=== PATIENT | male | born 1975 | race Caucasian/White ===

== ENCOUNTER 2016-12-11 22:46 | Emergency (ER) | payer OTHER ==
[~2016-12-11 22:46] MED LIST: AMLO10TA2 PO; ASPI81CH37 CHEW; B-CO1CAP9 PO; CHOL50006 PO; HYDR-3801 PO; INSU100V2 SQ; INSU1INJ5 SQ; LEVO25TA4 PO; SIMV10TA PO; SITA50 PO; SODI650T PO; SPIR50TA PO
[2016-12-11 22:47] VITALS: BP 134/60; PULSE 82; RESP 16; TEMP 98.9; O2SAT 96
--- NOTE | 2016-12-11 22:53 | PD ---
Physical Exam Date Seen by Provider: Dec 11, 2016 Time Seen by Provider: 22:51 Data Data Last Documented VS Vital Signs Date Time Temp Pulse Resp B/P (MAP) Pulse Ox O2 Delivery O2 Flow Rate FiO2 12/11/16 22:47 98.9 82 16 134/60 (84) 96 Room Air MDM Supervised Visit with ANGELITA: No Narrative Course 41 YO M with complaint of "my transfer set popped off my PD catheter." Last dialysis last night. Vitals stable. Patient seen in triage, awaiting bed placement. Tomasa Kent Dec 11, 2016 22:53
--- NOTE | 2016-12-11 23:06 | PD ---
HPI Chief Complaint: Party Chief Problem Time Seen by Provider: 23:05 Travel History International Travel<30 days: No Contact w/Intl Traveler<30days: No Traveled to known affect area: No History of Present Illness HPI 41-year-old male with history of hypertension, diabetes, end-stage renal disease on peritoneal dialysis presents to the emergency department because the transfer set on his catheter tubing came off. He contacted the dialysis nurse who advised to come to the emergency department for antibiotics and replacement of the transverse that. His roller is Dr. Villarreal. Patient states that the catheter was exposed for approximately 3 minutes. Denies abdominal pain. No fever chills. No other symptoms to report. PFSH Past Medical History Cancer: No Cardiovascular Problems: Yes (cad, stent) Diabetes: Yes Patient Takes Glucophage: Yes Endocrine: Yes Genitourinary: No Hepatitis: No Hiatal Hernia: No Hypertension: Yes Immune Disorder: No Musculoskeletal: No Neurologic: No Psychiatric: No Reproductive: No Respiratory: No Thyroid Disease: Yes Past Surgical History Abdominal Surgery: No AICD: No Cardiac Surgery: Yes (stent) Ear Surgery: No Endocrine Surgery: No Eye Surgery: Yes Genitourinary Surgery: No Gynecologic Surgery: No Joint Replacement: No Oral Surgery: No Pacemaker: No Thoracic Surgery: No Other Surgery: Yes Social History Alcohol Use: No Tobacco Use: No Substance Use: No Allergies-Medications (Allergen,Severity, Reaction): Coded Allergies: No Known Allergies (Unverified , 12/11/16) Reported Meds & Prescriptions Reported Meds & Active Scripts Active Reported Amlodipine (Amlodipine Besylate) 10 Mg Tab 10 Mg PO DAILY Nephrocaps (B-Complex W/ C & Folic Acid) 1 Cap 1 Cap PO DAILY If on dialysis, take after treatment. Humulin R Inj (Insulin Human Regular) 1,000 Unit/10 Ml Vial 1-9 Units SQ ACHS Max dose at bedtime( )units; sugars < 70(0)units; sugars 150-199,(1)unit; sugars 200-249(3)units; sugars 250-299,(5)units; sugars 300-349(7)units; sugars more than 349(9)units. Sodium Bicarbonate 650 Mg Tab 650 Mg PO BIDPC Hydralazine (Hydralazine HCl) 100 Mg Tab 100 Mg PO TID Take with meals Simvastatin 10 Mg Tab 10 Mg PO DAILY Levothyroxine (Levothyroxine Sodium) 25 Mcg Tab 25 Mcg PO DAILY Spironolactone 50 Mg Tab 50 Mg PO BIDPC Januvia (Sitagliptin Phosphate) 50 Mg Tab 50 Mg PO DAILY Levemir Flextouch Pen Inj (Insulin Detemir) 300 unit/3 ML Pen 60 Units SQ BID Aspirin Low Dose (Aspirin) 81 Mg Chew 162 Mg CHEW DAILY Review of Systems Except as stated in HPI: all other systems reviewed are Neg Physical Exam Narrative GENERAL: Well-nourished male patient in no acute distress SKIN: Focused skin assessment warm/dry. HEAD: Atraumatic. Normocephalic. EYES: Pupils equal and round. No scleral icterus. No injection or drainage. ENT: No nasal bleeding or discharge. Mucous membranes pink and moist. NECK: Trachea midline. No JVD. CARDIOVASCULAR: Regular rate and rhythm. No murmur appreciated. RESPIRATORY: No accessory muscle use. Clear to auscultation. Breath sounds equal bilaterally. GASTROINTESTINAL: Abdomen soft, non-tender, nondistended. Peritoneal catheter dressing in place and the tubing is clamped. Hepatic and splenic margins not palpable. MUSCULOSKELETAL: No obvious deformities. No clubbing. No cyanosis. No edema. NEUROLOGICAL: Awake and alert. No obvious cranial nerve deficits. Motor grossly within normal limits. Normal speech. PSYCHIATRIC: Appropriate mood and affect; insight and judgment normal. Data Data Last Documented VS Vital Signs Date Time Temp Pulse Resp B/P (MAP) Pulse Ox O2 Delivery O2 Flow Rate FiO2 12/12/16 02:02 12/11/16 22:47 98.9 82 16 96 Room Air Orders Orders Iv Access Insert/Monitor (12/11/16 23:46) Ceftriaxone Inj (Rocephin Inj) (12/12/16 00:00) Vancomycin Inj (Vancomycin Inj) (12/12/16 00:00) ^ Other Nursing Orders (12/12/16 00:49) MDM Medical Decision Making Medical Screen Exam Complete: Yes Emergency Medical Condition: Yes Medical Record Reviewed: Yes Differential Diagnosis Catheter dysfunction versus cellulitis versus peritonitis Narrative Course 41-year-old male presents to the emergency department for evaluation. Patient appears well and without distress. The transverse that from his peritoneal dialysis has come off. I discussed the patient with Dr. Villarreal, his roller. He recommends the patient have IV Rocephin and IV vancomycin. These are given in the emergency department. If the fluid is cloudy to culture it however the fluid in the peritoneal tubing is very clear. I have discussed the patient with Renzo dialysis nurse here. He will come down and change out the transverse sets. Patient is advised to follow-up with his roller and return immediately with any acute worsening symptoms. He agrees with this clinic care. Diagnosis Primary Impression: PD catheter dysfunction Qualified Codes: T85.611A - Breakdown (mechanical) of intraperitoneal dialysis catheter, initial encounter Referrals: [facility] Primary Care Physician Patient Instructions: General Instructions, Peritoneal Dialysis Catheter Care ( ED) Additional Instructions: Follow up with your roller Return to the ED with acute worsening of symptoms Med/Other Pt SpecificInfo: No Change to Meds Disposition: 01 DISCHARGE HOME Condition: Stable Hafsa Whelan Dec 11, 2016 23:05
[2016-12-12] MEDS ORDERED: VANCOMYCIN INJ 1,000 MG in SODIUM CHLOR 0.9% 250 ML INJ 250 ML IV ONE ×2
[2016-12-12] MEDS ORDERED: cefTRIAXone INJ 1,000 MG in SODIUM CHLORIDE 0.9% INJ 100 ML IV ONE ×2
== END 2016-12-12 02:03 | disposition home or self-care (01) ==
LOC: NEPD 22:46
DX: T85.611A Breakdown (mechanical) of intraperitoneal dialysis catheter, initial encounter (principal); X58.XXXA Exposure to other specified factors, initial encounter; E11.22 Type 2 diabetes mellitus with diabetic chronic kidney disease; I13.11 Hypertensive heart and chronic kidney disease without heart failure, with stage 5 chronic kidney disease, or end stage renal disease; N18.6 End stage renal disease; Z99.2 Dependence on renal dialysis
CPT/HCPCS: 96365; 96375; 99284; J0696; J3370; J7050